=== PATIENT | male | born 1970 | race Caucasian/White ===

== ENCOUNTER 2016-04-11 03:23 | Emergency (ER) | payer OTHER ==
--- NOTE | 2016-04-11 05:08 | ED NURSING NOTES ---
Clinical Report - Nurses [facility] [address] [place] [address] 04/11/2016 3:26 [id number] TRI[facility] Triage time 03:30 Apr 11 2016. Acuity: LEVEL 5. Chief Complaint: SKIN PROBLEM and TENDER AREA. --03:33 Jus Schulz R.N. 03:30 04/11/16. BP: 139/86. HR: 65. RR: 18. O2 saturation: 98%. Temp: 98.3 F. Pain level now 610. --03:33 Jus Schulz R.N. Weight: 90.7 kg stated. Height/Length: 66 inches Per Patient. BMI: 32.3. --03:31 Jus Schulz R.N. Medications None. --03:32 Jus Schulz R.N. Allergies No Known Drug Allergy. --03:32 Jus Schulz R.N. History ( Pt reports possible ingrown hair that has become infected. He states that tonight it woke him from sleep). Location - face. This started last night. It is described as itchy. SOCIAL HX: Never smoker. No alcohol use or drug use. --03:33 Jus Schulz R.N. Assessment The patient states feels the same. --03:33 Jus Schulz R.N. Interventions ID band on patient. To treatment room. --03:33 Jus Schulz R.N. PHYSICAL ASSESSMENT GENERAL / NEURO / PSYCH: Alert. The patient does not appear to be in acute distress. Natalia Coma Scale. (15). Oriented X 4. HEENT: Pupils equal, round and reactive to light. Mucous membranes are pink. RESPIRATORY: Respirations not labored. Breath sounds within normal limits. CVS: Capillary refill less than 2 seconds. Pulses within normal limits. SKIN: Skin is warm and dry. ( 2x3 CM area of swelling and redness On R side of chin). --03:34 Jus Schulz R.N. NURSING PROGRESS NOTES 04:27 04/11/2016 Bactrim DS (Sulfamethoxazole-TMP DS) PO 1 tab given. --04:27 Jus Schulz R.N. 05:14 04/11/2016 Bactrim DS PO Response: no adverse reaction. --05:14 Ronald Pena R.N. DISPOSITION / DISCHARGE Departure time: 05:15. Condition at departure: stable. The goals identified in the patient's plan of care were met. No learning barriers present. Discharge instructions provided and reviewed with the patient. Reviewed medication(s) side effects, precautions, dosing and course information. Prescription(s) given to the patient (Pedrito verbalizes importance of finishing all prescribed antibiotics.). Patient verbalized understanding. Written instructions provided in Senegalese. ( Pedrito verbalizes understanding of all d/c instructions including need for f/u with PCP. He has no questions and voices no concerns at this time.). The patient was discharged by the physician. He was discharged home and accompanied by spouse. He left the Emergency Department ambulatory and via private vehicle. Spouse driving. NATALIA COMA SCORE: Natalia Coma Scale: 15- eyes open spontaneously (4); best verbal response- oriented x 4 (5); best motor response- obeys commands (6). --05:15 Ronald Pena R.N. 05:14 04/11/16. BP: 131/94 (regular adult cuff) taken on the left arm, via an automated monitor, while sitting. HR: 76 (normal rate). RR: 16 (regular, unlabored and normal). O2 saturation: 98% on room air. Temp: 98.4 F (oral). Pain level now: 09/03. --05:15 Ronald Pena R.N. Locked/Released at 04/11/2016 5:16 by Ronald Pena R.N.
--- NOTE | 2016-04-11 05:08 | ED CLINICAL REPORT ---
Clinical Report - Physicians/[facility] Levels [facility] [address] [place] [address] 04/11/2016 3:26 Patient: SETH PATE Time Seen: 04:12. Arrived- By private vehicle. Historian- patient. HISTORY OF PRESENT ILLNESS Chief Complaint: LESION. This started several days ago and is still present and now worse. It is described as painful. It has been located on the face. A possible cause has been identified (PT believes it started with an ingrown hair, and progressed to its current, larger size.). Similar symptoms previously: Recent medical care: Not recently seen/assessed. REVIEW OF SYSTEMS No fever, chills, sore throat, cough or difficulty breathing. No hoarseness, enlarged lymph nodes, headache, eye irritation or chest pain. No abdominal pain, nausea, diarrhea, difficulty with urination or joint pain. No vomiting. All systems otherwise negative, except as recorded above. PAST HISTORY No history of neurological disease. SOCIAL HISTORY Never smoker. No alcohol use or drug use. ADDITIONAL NOTES The nursing notes have been reviewed. PHYSICAL EXAM Vital Signs: 04/11/2016 03:30 BP: 139/86. HR: 65. RR: 18. O2 saturation: 98%. Temp: 98.3 F. Have been reviewed. Appearance: Alert. Oriented X3. No acute distress. Eyes: Pupils equal, round and reactive to light. Conjunctivae and eyelids normal. ENT: Nose normal. Neck: Neck supple. Respiratory: No respiratory distress. Skin: Skin warm and dry. Single small tender indurated area to the face (Firm area is about 2 cm in diameter, with the erythematous area about 3 cm in diameter, and overlies the R mandibular angle.). No fluctuance, pointing or drainage. Extremities: Normal external inspection. Neuro: Oriented X 3. No motor deficit. No sensory deficit. LABS, X-RAYS, AND EKG Pulse Oximetry: 04/11/2016 03:30 O2 saturation: 98%. (FIO2 - room air). Interpretation: normal. PROGRESS AND PROCEDURES Course of Care: I d/w pt that he may have a tiny abscess at the core of the lesion, but it is hard to tell at this point. I have given the pt the option of I&D, with the understanding that it is possible no pus will be found. Alternatively, I have given the option of oral abx and hot packing, with the possibility that there is an abscess at the core that will not be eradicated by abx alone, and will require I&D after all. Pt opted for the latter option. He was given a dose of Bactrim in the ED. Patient counseled in person regarding the patient's stable condition, diagnosis and need for follow-up. Concerns were addressed. Old medical records reviewed. Disposition: Discharged. Condition: stable. CLINICAL IMPRESSION Single superficial abscess to the face. INSTRUCTIONS Warnings: GENERAL WARNINGS: Return or contact your physician immediately if your condition worsens or changes unexpectedly, if not improving as expected, or if other problems arise. Prescription Medications: Bactrim DS 800 mg / 160 mg: take 1 tablet orally every 12 hours for 7 days. No refill. Substitution is permissible. Follow-up: Follow up with your doctor in seven days if not better. Understanding of the discharge instructions verbalized by patient. (Electronically signed by Noemi Dykes MD 04/12/2016 21:33)
--- NOTE | 2016-04-11 05:08 | ED ORDER SUMMARY ---
..... Patient: SETH PATE OrderSheet [facility] VisitID: [id number] [address] [place] [address] 45y, M Registration Date/Time: 04/11/2016 ORDER SHEET Weight: 90.7 kg (stated) Allergies: No Known Drug Allergy GENERAL ORDERS: MEDICATION ORDERS: Bactrim DS PO (Tablet 800-160 mg) 1 tab (NOW) (04:22 04/11/2016 Misa MORA) (4:27 Ritu R.N.) IV FLUIDS: ORDER SHEET NOTES: [Electronically signed by Ronald Pena R.N. (05:16 04/11/2016)] [Electronically signed by Noemi Dykes MD (21:33 04/12/2016)] [Electronically locked/signed by Ronald Pena R.N. (05:16 04/11/2016)]
--- NOTE | 2016-04-11 05:08 | ED NURSING NOTES ---
Clinical Report - Nurses [facility] [address] [place] [address] 04/11/2016 3:26 [id number] TRI[facility] Triage time 03:30 Apr 11 2016. Acuity: LEVEL 5. Chief Complaint: SKIN PROBLEM and TENDER AREA. --03:33 Jus Schulz R.N. 03:30 04/11/16. BP: 139/86. HR: 65. RR: 18. O2 saturation: 98%. Temp: 98.3 F. Pain level now 610. --03:33 Jus Schulz R.N. Weight: 90.7 kg stated. Height/Length: 66 inches Per Patient. BMI: 32.3. --03:31 Jus Schulz R.N. Medications None. --03:32 Jus Schulz R.N. Allergies No Known Drug Allergy. --03:32 Jus Schulz R.N. History ( Pt reports possible ingrown hair that has become infected. He states that tonight it woke him from sleep). Location - face. This started last night. It is described as itchy. SOCIAL HX: Never smoker. No alcohol use or drug use. --03:33 Jus Schulz R.N. Assessment The patient states feels the same. --03:33 Jus Schulz R.N. Interventions ID band on patient. To treatment room. --03:33 Jus Schulz R.N. PHYSICAL ASSESSMENT GENERAL / NEURO / PSYCH: Alert. The patient does not appear to be in acute distress. Natalia Coma Scale. (15). Oriented X 4. HEENT: Pupils equal, round and reactive to light. Mucous membranes are pink. RESPIRATORY: Respirations not labored. Breath sounds within normal limits. CVS: Capillary refill less than 2 seconds. Pulses within normal limits. SKIN: Skin is warm and dry. ( 2x3 CM area of swelling and redness On R side of chin). --03:34 Jus Schulz R.N. NURSING PROGRESS NOTES 04:27 04/11/2016 Bactrim DS (Sulfamethoxazole-TMP DS) PO 1 tab given. --04:27 Jus Schulz R.N. 05:14 04/11/2016 Bactrim DS PO Response: no adverse reaction. --05:14 Ronald Pena R.N. DISPOSITION / DISCHARGE Departure time: 05:15. Condition at departure: stable. The goals identified in the patient's plan of care were met. No learning barriers present. Discharge instructions provided and reviewed with the patient. Reviewed medication(s) side effects, precautions, dosing and course information. Prescription(s) given to the patient (Pedrito verbalizes importance of finishing all prescribed antibiotics.). Patient verbalized understanding. Written instructions provided in Belgian. ( Pedrito verbalizes understanding of all d/c instructions including need for f/u with PCP. He has no questions and voices no concerns at this time.). The patient was discharged by the physician. He was discharged home and accompanied by spouse. He left the Emergency Department ambulatory and via private vehicle. Spouse driving. NATALIA COMA SCORE: Natalia Coma Scale: 15- eyes open spontaneously (4); best verbal response- oriented x 4 (5); best motor response- obeys commands (6). --05:15 Ronald Pena R.N. 05:14 04/11/16. BP: 131/94 (regular adult cuff) taken on the left arm, via an automated monitor, while sitting. HR: 76 (normal rate). RR: 16 (regular, unlabored and normal). O2 saturation: 98% on room air. Temp: 98.4 F (oral). Pain level now: 09/03. --05:15 Ronald Pena R.N. Locked/Released at 04/11/2016 5:16 by Ronald Pena R.N.
--- NOTE | 2016-04-11 05:08 | ED ORDER SUMMARY ---
..... Patient: SETH PATE OrderSheet [facility] VisitID: [id number] [address] [place] [address] 45y, M Registration Date/Time: 04/11/2016 ORDER SHEET Weight: 90.7 kg (stated) Allergies: No Known Drug Allergy GENERAL ORDERS: MEDICATION ORDERS: Bactrim DS PO (Tablet 800-160 mg) 1 tab (NOW) (04:22 04/11/2016 Misa MORA) (4:27 Ritu R.N.) IV FLUIDS: ORDER SHEET NOTES: [Electronically signed by Ronald Pena R.N. (05:16 04/11/2016)] [Electronically signed by Noemi Dykes MD (21:33 04/12/2016)] [Electronically locked/signed by Ronald Pena R.N. (05:16 04/11/2016)]
--- NOTE | 2016-04-12 21:33 | ED MAR SUMMARY ---
..... Medication Administration Record [facility] [address] [place] [address] Patient: SETH PATE Visit ID: [id number] 45y, M Weight: 90.7 kg Height/Length: 66 in BMI: 32.3 ALLERGIES: No Known Drug Allergy Given 04:27 04/11/2016 Jus Schulz RJanetNJanet Medication Administered: BACTRIM DS [PO] (SULFAMETHOXAZOLE-TMP DS), Dose: 1 tab PO. Medication Ordered: Bactrim DS PO (Tablet 800-160 mg) 1 tab (NOW).
--- NOTE | 2016-04-12 21:33 | ED MAR SUMMARY ---
..... Medication Administration Record [facility] [address] [place] [address] Patient: SETH PATE Visit ID: [id number] 45y, M Weight: 90.7 kg Height/Length: 66 in BMI: 32.3 ALLERGIES: No Known Drug Allergy Given 04:27 04/11/2016 Jus Schulz RJanetNJanet Medication Administered: BACTRIM DS [PO] (SULFAMETHOXAZOLE-TMP DS), Dose: 1 tab PO. Medication Ordered: Bactrim DS PO (Tablet 800-160 mg) 1 tab (NOW).
--- NOTE | 2016-04-12 21:33 | ED DISCHARGE INSTRUCTIONS ---
Patient: SETH PATE General Instructions [facility] VisitID: [id number] [place] [address] 45y, M Registration Date/Time: 04/11/2016 Single superficial abscess to the face. INSTRUCTIONS Warnings: GENERAL WARNINGS: Return or contact your physician immediately if your condition worsens or changes unexpectedly, if not improving as expected, or if other problems arise. Prescription Medications: Bactrim DS 800 mg / 160 mg: take 1 tablet orally every 12 hours for 7 days. No refill. Substitution is permissible. Follow-up: Follow up with your doctor in seven days if not better. Understanding of the discharge instructions verbalized by patient. ADDITIONAL INFORMATION Abscess (Antibiotic Treatment Only) An abscess (sometimes called a boil) occurs when bacteria get trapped under the skin and begin to grow. Pus forms inside the abscess as the body responds to the bacteria. An abscess can occur with an insect bite, ingrown hair, blocked oil gland, pimple, cyst, or puncture wound. In the early stages, redness and tenderness are the only symptoms. Sometimes, this stage can be treated with antibiotics alone. If the abscess does not respond to antibiotic treatment, it will need to be drained with a small cut, under local anesthesia. Home care The following will help you care for your abscess at home: Soak the wound in hot water or apply hot packs (small towel soaked in hot water) to the area for 20 minutes at a time. Do this three to four times a day. Apply antibiotic cream or ointment onto the skin 3-4 times a day, unless something else was prescribed. Some ointments include an antibiotic plus a local pain reliever. If your doctor prescribed antibiotics, do not stop taking this medication until you have finished the prescribed course or the doctor tells you to stop. You may use an [id number] pain medication to control pain, unless another pain medicine was prescribed. If you have chronic liver or kidney disease or ever had a stomach ulcer or GI bleeding, talk with your doctor before using these any of these. Follow-up care Follow up with your health care provider as advised by our staff. Look at your wound each day for the signs of worsening infection listed below. When to seek medical care Get prompt medical attention if any of the following occur: An increase in redness or swelling Red streaks in the skin leading away from the abscess An increase in local pain or swelling Fever of 100.4F (38C) or higher, or as directed by your health care provider Pus or fluid coming from the abscess You have been given the following additional information: Abscess, Antiobiotic Treatment Only (Electronically signed by Noemi Dykes MD 04/12/2016 21:33)
--- NOTE | 2016-04-12 21:33 | ED MED RECONCILIATION SUMMARY ---
Patient: SETH PATE Medication Reconciliation Report [facility] VisitID: [id number] [address] [place] [address] 45y, M Registration Date/Time: 04/11/2016 Weight: 90.7 kg Height/Length: 66 in. BMI: 32.3 ALLERGIES: No Known Drug Allergy The patient's Home Medications are listed below: NONE. The source(s) of the original Home Medication information: Not obtained. The following Medications were given to the patient in the Emergency Department: Bactrim DS [PO] PO 1 tab, administered: 04/11/2016 4:27:00 AM The following Medications were prescribed to the patient: Bactrim DS 800 mg / 160 mg: take 1 tablet orally every 12 hours for 7 days. No refill. Substitution is permissible. -- Noemi Dykes MD
--- NOTE | 2016-04-12 21:33 | ED DISCHARGE INSTRUCTIONS ---
Patient: SETH PATE General Instructions [facility] VisitID: [id number] [place] [address] 45y, M Registration Date/Time: 04/11/2016 Single superficial abscess to the face. INSTRUCTIONS Warnings: GENERAL WARNINGS: Return or contact your physician immediately if your condition worsens or changes unexpectedly, if not improving as expected, or if other problems arise. Prescription Medications: Bactrim DS 800 mg / 160 mg: take 1 tablet orally every 12 hours for 7 days. No refill. Substitution is permissible. Follow-up: Follow up with your doctor in seven days if not better. Understanding of the discharge instructions verbalized by patient. ADDITIONAL INFORMATION Abscess (Antibiotic Treatment Only) An abscess (sometimes called a boil) occurs when bacteria get trapped under the skin and begin to grow. Pus forms inside the abscess as the body responds to the bacteria. An abscess can occur with an insect bite, ingrown hair, blocked oil gland, pimple, cyst, or puncture wound. In the early stages, redness and tenderness are the only symptoms. Sometimes, this stage can be treated with antibiotics alone. If the abscess does not respond to antibiotic treatment, it will need to be drained with a small cut, under local anesthesia. Home care The following will help you care for your abscess at home: Soak the wound in hot water or apply hot packs (small towel soaked in hot water) to the area for 20 minutes at a time. Do this three to four times a day. Apply antibiotic cream or ointment onto the skin 3-4 times a day, unless something else was prescribed. Some ointments include an antibiotic plus a local pain reliever. If your doctor prescribed antibiotics, do not stop taking this medication until you have finished the prescribed course or the doctor tells you to stop. You may use an tahw-xmi-nuvkour pain medication to control pain, unless another pain medicine was prescribed. If you have chronic liver or kidney disease or ever had a stomach ulcer or GI bleeding, talk with your doctor before using these any of these. Follow-up care Follow up with your health care provider as advised by our staff. Look at your wound each day for the signs of worsening infection listed below. When to seek medical care Get prompt medical attention if any of the following occur: An increase in redness or swelling Red streaks in the skin leading away from the abscess An increase in local pain or swelling Fever of 100.4F (38C) or higher, or as directed by your health care provider Pus or fluid coming from the abscess You have been given the following additional information: Abscess, Antiobiotic Treatment Only (Electronically signed by Noemi Dykes MD 04/12/2016 21:33)
--- NOTE | 2016-04-12 21:33 | ED MED RECONCILIATION SUMMARY ---
Patient: SETH PATE Medication Reconciliation Report [facility] VisitID: [id number] [address] [place] [address] 45y, M Registration Date/Time: 04/11/2016 Weight: 90.7 kg Height/Length: 66 in. BMI: 32.3 ALLERGIES: No Known Drug Allergy The patient's Home Medications are listed below: NONE. The source(s) of the original Home Medication information: Not obtained. The following Medications were given to the patient in the Emergency Department: Bactrim DS [PO] PO 1 tab, administered: 04/11/2016 4:27:00 AM The following Medications were prescribed to the patient: Bactrim DS 800 mg / 160 mg: take 1 tablet orally every 12 hours for 7 days. No refill. Substitution is permissible. -- Noemi Dykes MD
== END 2016-04-11 05:13 | disposition home or self-care (01) ==
LOC: ED SRH 03:23
DX: L02.01 Cutaneous abscess of face (principal)